=== PATIENT | male | born 1990 | race Hispanic/Latino ===

== ENCOUNTER 2022-08-06 22:01 | Observation (INO) | payer SELFPAY ==
[2022-08-06] VITALS (12 sets, daily range): BP systolic 107–133; BP diastolic 52–77; PULSE 114–145; RESP 22–52; TEMP 38–39; O2SAT 95–99
--- NOTE | ~2022-08-06 | XR_ITS ---
EXAMINATION: XR chest 1V portable DATE: 08/07/2022 01:26 INDICATION: Pneumonia. TECHNIQUE: A single frontal view of the chest was obtained. COMPARISON: None. FINDINGS: The chest demonstrates clear lungs without pneumonia, pleural effusion, or pneumothorax. Th e heart size is normal. IMPRESSION: 1. No acute cardiopulmonary disease. Reviewed, dictated and finalized at location A.
[2022-08-06] MEDS: diphenhydrAMINE HCl INJ 50 MG/ML VIAL (22:22)
[2022-08-06] MEDS: HALOPERIDOL LACTATE 5 MG/ML VIAL (22:22)
[2022-08-06] MEDS: LORazepam INJ (*CRX) 2 MG/ML VIAL (22:25)
[2022-08-06] MEDS: LORazepam INJ (*CRX) 2 MG/ML VIAL IV PUSH (22:37)
[2022-08-06 22:39] LABS: Basophils Absolute Auto 0.1 K/mm3 (0.0-0.1); Basophils Percent Auto 0.5 % (0.2-1.2); Eosinophils Absolute Auto 0.2 K/mm3 (0-0.3); Eosinophils Percent Auto 1.3 % (0-4.4); Hematocrit 43.5 % (42.0-52.0); Immature Granulocyte Absolute 0.07 K/mm3 (0.00-0.031); Immature Granulocyte Percent A 0.5 % (0-0.5); Lymphocytes Absolute Auto 3.56 K/mm3 (0.9-3.2); Lymphocytes Percent Auto 24.8 % (18.3-44.2); Mean Corpuscular HGB Conc 32.2 g/dl (32-36); Mean Corpuscular Hemoglobin 29.2 pg (26-34); Mean Corpuscular Volume 90.8 fl (80-100); Mean Platelet Volume 9.6 fl (7.4-10.4); Monocytes Percent Auto 7.2 % (2.6-8.5); Neutrophils Absolute Auto 9.5 K/mm3 (1.3-6.7); Neutrophils Percent Auto 65.7 % (45.5-73.1); Platelet Count Result 419 k/mm3 (150-375); Red Blood Count 4.79 M/mm3 (4.6-6.20); White Blood Count 14.4 K/mm3 (4.5-10.0)
[2022-08-06] MEDS: SODIUM CHLORIDE 0.9% IV 2,000 ML 999 ML IV CONT (22:39)
--- NOTE | 2022-08-06 22:50 | ECG_ITS ---
Measurements Intervals [place] Rate: 143 P: 65 MT: 165 QRS: 47 QRSD: 86 T: 49 QT: 348 QTc: 538 Interpretive Statements SINUS TACHYCARDIA, POSSIBLE ATRIAL FLUTTER NONSPECIFIC T-WAVE ABNORMALITY ABNORMAL RHYTHM ECG NO PREVIOUS ECG AVAILABLE FOR COMPARISON Electronically Signed On 08-10-2022 14:49:18 CDT by Sandra Kern M.D.
--- NOTE | 2022-08-06 22:53 | ED.GENADULT ---
HPI - General Adult General Chief complaint: Overdose Stated complaint: od History of Present Illness HPI narrative: 31-year-old male presenting to the emergency department from a hotel for erratic behavior. When police arrived to the scene patient was and what was described as an excited delirium. Patient told the police that he took fentanyl even though the patient was not showing signs of fentanyl overdose. Upon arrival to the emergency department patient became combative and needed physical restraints. Patient was also treated with chemical restraint including Ativan IM, Haldol IM and Benadryl IM. An IV was established and patient was treated with additional Ativan IV. When patient was more calm he states that he did take cocaine mixed with aspirin. Related Data Home Medications Medication Instructions Recorded Confirmed No Home Medications 08/07/22 08/07/22 Allergies Allergy/AdvReac Type Severity Reaction Status Date / Time No Known Allergies Allergy Verified 08/06/22 22:02 Review of Systems Review of Systems: ROS unobtainable: Yes unobtainable due to medical condition [facility] Past Medical History Medical History (Updated 08/07/22 @ 03:29 by Sumi Burgess DO) Drug abuse Obesity (BMI 30.0-34.9) Social History Social History Smoking status: Unknown if ever smoked Additional smoking assessment comments: ZACKERY; patient under influence of drugs Alcohol intake: current Substance use: current Substance use type: crack/cocaine Other substance usage details: UDS positive for Cocaine; Patient drinks a 12 pack beer/day Last use: 08/07/2022 Spiritual care concerns: No Exam Narrative: APPEARANCE: Agitated HEAD: normocephalic, atraumatic. EYES: PERRLA/EOMI, conjunctivae clear. NOSE: Normal no drainage EARS:TMS clear with good light reflex. THROAT: Pharynx clear, no exudate. NECK: Supple. No adenopathy, no masses. RESPIRATORY: Airway patent, respirations nonlabored. Clear to auscultation bilaterally, no rales, rhonchi, wheezing. CARDIOVASCULAR: Tachycardia ABDOMINAL: Soft, nontender, nondistended, normal bowel sounds MUSCULOSKELETAL: Moves all extremities. Strength/ROM intact, No edema, No calf tenderness. NEURO: Alert. Cranial nerves II through XII intact. Grossly intact SKIN: Diaphoretic PSYCHIATRIC: Highly agitated Course Course Emergency Course: 31-year-old male presenting to the ED for evaluation of excited delirium and suspected cocaine intoxication. Patient was initially treated with IM Benadryl, Haldol, Ativan and this provided some relief with his agitation. An IV was established and patient was treated with additional IV Ativan. 1120 patient is currently resting more comfortably. Patient states he is having pain throughout his entire body. Patient has 3 L of IV fluids ordered. Patient was hyperthermic and conductive cooling and ice packs are being utilized to drop his temperature. Patient EKG shows sinus tachycardia. Patient's initial lactic acid was elevated at 21. This was also collected while the patient was physically agitated. Patient states he did take cocaine mixed with aspirin but patient salicylates are negative. 12:18 AM patient's heart rate has continued to improve. Patient's heart rate is now 108-1 10. Repeat EKG shows no evidence of acute STEMI. Patient's initial troponin was negative. Patient's CPK was not significantly elevated. Patient does have a leukocytosis of 15.4. UA does show proteinuria. Patient was negative for salicylates, acetaminophen and alcohol. Repeat lactic acid was 4.5. Case was discussed with Dr. Bundy and he was comfortable with the plan for admission to the ICU. Hospitalist was paged. 1:31 AM patient's urine drug screen was positive for cocaine. Case discussed with hospitalist and patient was accepted for admission. X-ray shows no acute cardiopulmonary abnormality. On reexamination patient is somnolent but does wake to verbal stimu
[2022-08-06 22:55] LABS: Albumin Level 4.4 g/dL (3.5-5.1); Alkaline Phosphatase 77 U/L (38-126); Anion Gap 30 mmol/L (8-16); Aspartate Amino Transferase 27 U/L (17-59); Bilirubin,Total 0.3 mg/dL (0.2-1.3); Blood Urea Nitrogen 10 mg/dL (9-20); Carbon Dioxide 9 mmol/L (22-30); Chloride 103 mmol/L (98-107); Estimated CRCL calculation 79 ml/min; Estimated Glomerular Filt Rate > 60; Glucose 398 mg/dL (65-110); Magnesium 2.1 mg/dL (1.6-2.3); Potassium 3.6 mmol/L (3.4-5.0); Sodium 142 mmol/L (137-145)
--- NOTE | 2022-08-06 22:55 | PC.NURSE ---
spoke w/ poison control spoke w/ WESLEY sewell states she will fax over tx. regimen.
[2022-08-06 22:56] LABS: Acetaminophen < 10 ug/mL (10-30); Ethanol < 10 mg/dL (<10); Salicylate < 1.0 mg/dL (2-20)
[2022-08-06 23:06] LABS: Alanine Aminotransferase 35 U/L (6-50)
[2022-08-06 23:11] LABS: Lactic Acid Reflex 21.5 mmol/L (0.7-2.0)
--- NOTE | 2022-08-06 23:13 | PC.NURSE ---
Report received from [facility] [place]. Assumed care of patient at this time. Patient still in restraints.
--- NOTE | 2022-08-06 23:16 | PC.NURSE ---
Officer Reynaldo from [facility] calls to state they need to be notified of patients disposition of admittance or discharge. He states that the patient is not under arrest at this time, but they do need to be notified if patient gets admitted or discharged home. Officer Reynaldo states to call [phone] which is [facility].
[2022-08-06] MEDS: SODIUM CHLORIDE 0.9% IV 1,000 ML 999 ML IV CONT (23:39)
[2022-08-06 23:45] LABS: Creatine Kinase 108 U/L (55-170)
--- NOTE | 2022-08-06 23:46 | PC.NURSE ---
CHUCK per , place patient on 2L via [place].
[2022-08-06 23:49] LABS: Appearance Urine Clear (Clear); Bacteria Urine None Seen /hpf; Bilirubin Urine Negative (Negative); Color Urine Yellow (Yellow); Glucose Urine UA 3+ mg/dL (Negative); Leukocyte Esterase Ur Negative LEU/UL (Negative); Nitrate Urine Negative (Negative); Protein Urine 3+ mg/dL (Negative); Specific Grav Ur 1.031 (1.001-1.035); Squamous Epithelial Cell Urine None seen /hpf (Few); Urobilinogen Urine 0.2 mg/dL (<2.0); WBC Urine 0-5 /hpf; pH Urine 5.5 (5.0-9.0)
--- NOTE | 2022-08-06 23:50 | PC.NURSE ---
Per CHUCK per erika Turk to remove restraints.
[2022-08-06 23:58] LABS: Troponin I < 0.012 ng/mL (0.000-0.034)
[2022-08-07] VITALS (18 sets, daily range): BP systolic 107–153; BP diastolic 70–82; PULSE 85–118; RESP 14–33; TEMP 36.4–37.9; O2SAT 98–100; BMI 33.0
--- NOTE | 2022-08-07 00:10 | ECG_ITS ---
Measurements Intervals [place] Rate: 110 P: 52 ID: [id number] QRS: 20 QRSD: 94 T: 19 QT: 371 QTc: 503 Interpretive Statements SINUS TACHYCARDIA LEFT ATRIAL ENLARGEMENT NONSPECIFIC T-WAVE ABNORMALITY NO PREVIOUS ECG AVAILABLE FOR COMPARISON Electronically Signed On 08-07-2022 10:17:11 CDT by Fabricio Bowman M.D.
--- NOTE | 2022-08-07 00:13 | PC.NURSE ---
CHUCK per , removed cool wash cloths and ice packs since patient is not longer febrile.
[2022-08-07 00:17] LABS: Add Urine Microscopic? YES
[2022-08-07 00:20] LABS: Lactic Acid Reflex 4.5 mmol/L (0.7-2.0)
[2022-08-07] MEDS: SODIUM CHLORIDE 0.9% IV 1,000 ML 999 ML IV CONT (00:24)
--- NOTE | 2022-08-07 00:32 | PC.NURSE ---
Call from Officer [facility]...this patient will have several charges...call PD (#IN PREVIOUS NOTE BY RN), BEFORE patient is released/discharged.
[2022-08-07 00:33] LABS: Amphetamine Screen Urine Negative (Negative); Barbiturate Screen Urine Negative (Negative); Benzodiazepines Screen Urine Negative (Negative); Cannabinoid Screen Urine Negative (Negative); Cocaine Screen Urine Positive (Negative); Methadone Screen Urine Negative (Negative); Opiate Screen Urine Negative (Negative); Phencyclidine Screen Urine Negative (Negative)
[2022-08-07 01:37] LABS: Reflex Lactic Acid Yes or No Add Lactic
--- NOTE | 2022-08-07 01:42 | PC.NURSE ---
updated poison control
[2022-08-07 01:55] LABS: Beta-Hydroxybutyrate/Acetoacetate 1.44 mmol/L (0.02-0.27)
--- NOTE | 2022-08-07 02:06 | PC.NURSE ---
Patients bedside glucose is 376.
[2022-08-07 02:07] LABS: Glucose Point of Care 376 mg/dl (65-105)
[2022-08-07 02:19] LABS: Lactic Acid 0.9 mmol/L (0.7-2.0)
[2022-08-07] MEDS: INSULIN HUMAN REGULAR (*BKC) 100 UNITS/ML 9 UNITS IV PUSH (02:38)
--- NOTE | 2022-08-07 03:08 | ADMGEN ---
This patient, Joe Llanos Jr., was admitted to Intensive Care Unit-2 at 0300. Patient/family oriented to hospital policies and general routines including ID bracelet, bed and alarms, visiting hours, pain management, procedures, bathroom and other care routines, personal items, smoking policy, room service/diet, and visiting hours. Information on how to activate the Rapid Response Team has been discussed. Patient/Family are encouraged to report perceived risks to care and to ask questions if they do not understand what they are told or what they should do.
[2022-08-07 03:11] LABS: Anion Gap 10 mmol/L (8-16); Blood Urea Nitrogen 11 mg/dL (9-20); Calcium 8.2 mg/dL (8.4-10.2); Carbon Dioxide 22 mmol/L (22-30); Chloride 106 mmol/L (98-107); Estimated CRCL calculation 116 ml/min; Estimated Glomerular Filt Rate > 60; Glucose 378 mg/dL (65-110); Magnesium 2.4 mg/dL (1.6-2.3); Phosphorus 2.1 mg/dL (2.5-4.5); Potassium 3.5 mmol/L (3.4-5.0); Sodium 138 mmol/L (137-145)
[2022-08-07 03:13] LABS: Hemoglobin A1C 12.8 % (<5.7)
[2022-08-07] MEDS: KCL 20 MEQ/D5/0.45% SOD CHL 1,000 ML 150 ML IV CONT (03:14)
[2022-08-07] MEDS: INSULIN HUMAN REGULAR (*BKC) 100 UNITS in SODIUM CHLORIDE 0.9% IV 99 ML IV CONT (03:15)
--- NOTE | 2022-08-07 03:19 | PM.IMHP ---
H&P: HPI History of Present Illness Date/Time: 08/07/22 03:19 Chief Complaint: Psychiatric evaluation Narrative: 31-year-old male with medical history of substance abuse who presented to the ER via EMS after they recalled to a hotel for psychiatric evaluation. The patient was noted to have white powder substance in his nares. He was not responding appropriately to commands and was disoriented and combative on arrival to the ER. The patient received 4 mg of Narcan x2 intranasally prior to coming to the ER. He also received IM Ativan IM Haldol and IM Benadryl. Additional IV Ativan was given in the field. The patient was able to tell ER staff that he had ingested cocaine mixed with aspirin. The patient had initial labs which demonstrated hyperglycemia, proteinuria, and urine drug screen was positive for cocaine. Salicylate level was negative. Patient was febrile on presentation but was cold using ice packs. Fevers since resolved. Blood cultures were obtained and are pending. Chest x-ray demonstrated no acute process but radiologic interpretation pending. EKG was performed and demonstrated sinus tachycardia with QTC of 503 with possible left atrial enlargement and nonspecific T-wave abnormality. The patient did wake up for me after multiple attempts once he arrived to the ICU. 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 He does not give much more information regarding his career. But the patient is currently under investigation for possible drug trafficking. He does smoke 4-5 cigarettes a day. He uses cocaine on what seems like a somewhat frequent basis. He states that he ?does not drink that much? but did drinks a 12 pack every couple of days. He does snore and has had episodes of witnessed apnea. He denies a known history of obstructive sleep apnea. He does not follow with a doctor and was unaware that he likely has diabetes as his glucoses in the ER were in the 300s. Initially I thought that the patient's beta hydroxybutyrate came back at 10. Therefore we ordered insulin drip for possible DKA. However on repeat evaluation of the patient's labs the beta hydroxybutyrate was only elevated to 1 in the patient's repeat BMP was essentially normal with normalization of anion gap and serum bicarb. The insulin drip was stopped. Patient's repeat glucose after arriving to the ICU was in the 200s. The patient denies having any pain. He is alert oriented x4 despite being somnolent. He denies any ill symptoms. He does have a Unger catheter in place with cloudy yellow urine present. ER nursing staff had emptied a significant amount a urine from the Unger catheter before the patient was brought up to the ICU. He has already had a couple 100 mL of urine output since then. Review of Systems Review of Systems: Review of systems was attempted but somewhat limited due to the patient's somnolence. Ten point review of systems was attempted pertinent positives and negatives mentioned above. 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 He uses cocaine frequently. He drinks at least a 6 pack of alcohol every 2 days. He denies marijuana use. He has never been . He denies having children. He reports that he would want his father to be his surrogate decision maker. His father's numbers in the chart. Joel
[2022-08-07] MEDS: POTASSIUM PHOS,M-BASIC-D-BASIC 20 MMOL in SODIUM CHLORIDE 0.9% IV 250 ML 64.17 MMOL IVPB (03:46)
[2022-08-07] MEDS: SODIUM CHLORIDE 0.9% IV 1,000 ML 150 ML IV CONT (03:46)
[2022-08-07 03:54] LABS: Glucose Point of Care 213 mg/dl (65-105)
--- NOTE | 2022-08-07 04:16 | ADMGEN ---
This patient, Joe Llanos Jr., was admitted to Intensive Care Unit-2. Patient/family oriented to hospital policies and general routines including ID bracelet, bed and alarms, visiting hours, pain management, procedures, bathroom and other care routines, personal items, smoking policy, room service/diet, and visiting hours. Information on how to activate the Rapid Response Team has been discussed. Patient/Family are encouraged to report perceived risks to care and to ask questions if they do not understand what they are told or what they should do.
[2022-08-07 05:26] LABS: Hematocrit 34.8 % (42.0-52.0); Hemoglobin 11.5 g/dL (14.0-18.0); Mean Corpuscular Volume 87.7 fl (80-100); Mean Platelet Volume 9.4 fl (7.4-10.4); Platelet Count Result 288 k/mm3 (150-375); Red Blood Count 3.97 M/mm3 (4.6-6.20); Red Cell Distribution Width 12.2 % (11.5-14.5); White Blood Count 12.2 K/mm3 (4.5-10.0)
[2022-08-07 05:36] LABS: Anion Gap 7 mmol/L (8-16); Blood Urea Nitrogen 10 mg/dL (9-20); Calcium 8.1 mg/dL (8.4-10.2); Carbon Dioxide 25 mmol/L (22-30); Chloride 110 mmol/L (98-107); Creatine Kinase 683 U/L (55-170); Estimated CRCL calculation 129 ml/min; Estimated Glomerular Filt Rate > 60; Glucose 146 mg/dL (65-110); Potassium 3.3 mmol/L (3.4-5.0); Sodium 142 mmol/L (137-145)
[2022-08-07 05:51] LABS: Hemoglobin A1C 12.9 % (<5.7)
[2022-08-07 06:10] LABS: Blood Urine 3+ (Negative); Ketones Urine Negative (Negative)
--- NOTE | 2022-08-07 08:52 | WPDCNINT ---
Assessment and Plan Assessment and plan (1) Cocaine intoxication: Qualifiers: Complication of substance-induced condition: with delirium Qualified Code(s): F14.921 - Cocaine use, unspecified with intoxication delirium Code(s): F14.929 - Cocaine use, unspecified with intoxication, unspecified Status: Acute Assessment and Plan: Patient uses cocaine for recreation was admitted with intoxication He was treated with benzodiazepine Haldol and Benadryl Patient now alert awake and oriented x3. Asymptomatic (2) Hypophosphatemia: Code(s): E83.39 - Other disorders of phosphorus metabolism Status: Acute Assessment and Plan: Patient was given replacement (3) Lactic acidosis: Code(s): E87.20 - Status: Acute Assessment and Plan: Secondary to cocaine abuse dehydration Resolved with IV fluids (4) DKA (diabetic ketoacidosis): Code(s): E11.10 - Type 2 diabetes mellitus with ketoacidosis without coma Status: Acute Assessment and Plan: Patient was given IV fluid bolus and IV insulin push. Anion gap has closed I had transition patient to subcutaneous insulin Plan to advance diet Plan Lovenox for DVT prophylaxis ordered I reviewed overnight records, discussed with admission physician, reviewed chart, reviewed labs and imaging. I interviewed and examined the patient. After my examination and explain a johnson of patient what is going on he requested to leave against medical advice. Patient is AO x3 is aware that he was using cocaine yesterday for recreational purposes and knows he is diabetic and does not want to take any medication. He lives in [place] and does not have any family here. He is worried about losing his job. He wants to leave AMA. I explained him that if he leaves against medical advice his condition which includes hyperglycemia, lactic acidosis, rhabdomyolysis may worsen and may put his life under threat. Patient still wants to leave against medical advice. He verbalized understanding of risks of leaving against medical advice and still wants to proceed. [employer]umba Instructor Consult Note Consult date: 08/07/22 Reason for consult: Cocaine intoxication altered mental status HPI: Joe Barrigaisrael Clarke is a 31 year old male with past medical history of cocaine abuse was brought from hotel room where he was found to be snorting cocaine by police to ER yesterday. Patient was confused agitated and disoriented. Patient was given Ativan Haldol and Benadryl to control. Lab work showed hyperglycemia elevated beta hydroxybutyrate UDS positive cocaine lactic acidosis. Chest x-ray was neck. ED showed prolonged QTC. Patient was given IV fluids, insulin and admitted to ICU for further evaluation management. On my exam patient was sleeping and I woke him up and he was AO x3 and denies any complaint. He states that he was feeling fine yesterday and used cocaine for recreation which she does regularly as he feels he is addicted to it. He does not remember anything since then. At this time he denies any complaints. 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 He does not take any medication. He knows that he may have diabetes but he has not been on any medications. Patient denies fever, chest pain, shortness of breath, cough, nausea vomiting, abdominal pain,, diarrhea, headache or constipation. All other systems were reviewed and were negative Review of Systems Review of Systems: All systems reviewed & are unremarkable except as noted in HPI and below (HPI) [facility] Past Medical History Medical History (Updated 08/07/22 @ 08:53 by Wero Bundy MD) Diabetes mellitus Drug abuse Obesity (BMI 30.0-34.9) Surgical History Surgical History Surgical history unknown Family History Family History Mother De
== END 2022-08-07 09:08 | disposition left against medical advice (07) ==
LOC: ANHED 08-07 00:06 → ANHICU 08-07 02:27
PROVIDERS: Admitting Provider Internal Medicine; Emergency Provider Emergency Medicine; Visit Provider Internal Medicine
DX: F14.121 Cocaine abuse with intoxication with delirium (principal); F10.90 Alcohol use, unspecified, uncomplicated; Y90.0 Blood alcohol level of less than 20 mg/100 ml; E11.10 Type 2 diabetes mellitus with ketoacidosis without coma; R50.9 Fever, unspecified; E83.39 Other disorders of phosphorus metabolism; E11.65 Type 2 diabetes mellitus with hyperglycemia; R94.31 Abnormal electrocardiogram [ECG] [EKG]; R00.0 Tachycardia, unspecified; E66.9 Obesity, unspecified; Z68.33 Body mass index [BMI] 33.0-33.9, adult
CPT/HCPCS: 36415; 51702; 71045; 80048; 80053; 80307; 81001; 82010; 82550; 82948; 83036; 83605; 83735; 84100; 84484; 85025; 85027; 87040; 93005; 96361; 96374; 96375; 99285; G0378; G0379; J1200; J1630; J1815; J2060; J3480; J7030; J7050